=== PATIENT | male | born 1965 | race African-American/Black ===

== ENCOUNTER 2023-08-07 14:26 | Emergency (ER) | payer SELFPAY ==
[2023-08-07 14:30] VITALS: BP 105/61; PULSE 85; RESP 16; TEMP 36.5; O2SAT 96
--- NOTE | 2023-08-07 15:16 | ED.GENADULT ---
HPI - General Adult General Chief complaint: Unspecified Stated complaint: heat exposure Time Seen by Provider: 08/07/23 15:16 Source: patient Mode of arrival: EMS Limitations: no limitations History of Present Illness HPI narrative: This is a 57-year-old male who is homeless and presenting to the ED via EMS after bystander called 911. They noted that he was sleeping outside with multiple layers on in the heat. Patient reports that he has been very hot in this weather. He states that he thinks he may have gotten a snake bite to his back. Otherwise he has no medical complaints. Related Data Allergies Allergy/AdvReac Type Severity Reaction Status Date / Time No Known Allergies Allergy Verified 08/07/23 15:21 Review of Systems Review of Systems: All systems as dictated in HPI Exam Narrative: GENERAL: disheveled. No acute distress HEAD: Normocephalic, atraumatic. EYES: PERRLA and EOMI. ENT: Nares clear, no rhinorrhea or epistaxis. Mucous membranes moist. Oropharynx without tonsillar hypertrophy exudate or other lesions. NECK: Supple. No adenopathy or masses. CHEST: No respiratory distress. Clear to auscultation. No wheezes rales or rhonchi HEART: Regular rate and rhythm. No murmur heard. Normal peripheral pulses. ABDOMEN: Soft, nontender, nondistended, normal active bowel sounds. MSK: Normal range of motion. No edema. No tenderness throughout the spine or extremities. SKIN: Warm, dry, no rash. No lesions noted to the back. NEURO: Alert and oriented x4. No focal deficits. PSYCH: Normal mood and affect. Course Vital Signs Vital signs: Vital Signs Temperature 97.7 F 08/07/23 14:30 Pulse Rate 85 08/07/23 14:30 Respiratory Rate 16 08/07/23 14:30 Blood Pressure 105/61 08/07/23 14:30 Pulse Oximetry 96 08/07/23 14:30 Temperature 97.7 F 08/07/23 14:30 Pulse Rate 85 08/07/23 14:30 Respiratory Rate 16 08/07/23 14:30 Blood Pressure 105/61 08/07/23 14:30 Pulse Oximetry 96 08/07/23 14:30 Medical Decision Making MDM Narrative Medical decision making narrative: This is a 57-year-old male who presents to the ED via EMS after bystander called for him sleeping outside in his clothes. Patient is homeless. Is only medical complaint today is that he may have gotten bit by a snake on his back. Vitals are grossly normal. Exam is benign. There are no lesions or tenderness throughout the back. No elevated temperature on his vitals. He is disheveled but otherwise well appearing. He has no further complaints. Pt will be discharged in stable condition. Return precautions given and supportive measures discussed. Pt is understanding and agreeable with plan for discharge and follow-up with PCP. Vital Signs Vital Signs: Vital Signs Temperature 97.7 F 08/07/23 14:30 Pulse Rate 85 08/07/23 14:30 Respiratory Rate 16 08/07/23 14:30 Blood Pressure 105/61 08/07/23 14:30 Pulse Oximetry 96 08/07/23 14:30 Temperature 97.7 F 08/07/23 14:30 Pulse Rate 85 08/07/23 14:30 Respiratory Rate 16 08/07/23 14:30 Blood Pressure 105/61 08/07/23 14:30 Pulse Oximetry 96 08/07/23 14:30 Discharge Plan Discharge Clinical Impression: Homelessness Patient Disposition: Home, Self-Care Condition: Stable Instructions: Antibiotic Form Additional Instructions: your exam today is reassuring. No elevated temperature on vitals. your back exam is well appearing. take tylenol as needed and try to stay well hydrated return to ER for any new or worsening symptoms Follow-up/Referrals: PHYSICIAN,FIBRE TECHNOLOGIST [Non-Staff] - Time of Disposition: 15:18
== END 2023-08-07 15:35 | disposition home or self-care (01) ==
LOC: ANHED 15:28
PROVIDERS: Emergency Provider Physician Assistant
DX: T67.9XXA Effect of heat and light, unspecified, initial encounter (principal); Z59.00 Homelessness unspecified; X30.XXXA Exposure to excessive natural heat, initial encounter
CPT/HCPCS: 99281